=== PATIENT | male | born 1990 | race Caucasian/White ===

== ENCOUNTER 2016-08-16 05:58 | Emergency (ER) | payer OTHER ==
[~2016-08-16 05:58] MED LIST: ALPR.25 PO; BENT20TA PO; METO10TA PO
[2016-08-16 06:01] VITALS: BP 128/81; PULSE 93; RESP 20; TEMP 98.8; O2SAT 100
[2016-08-16] MEDS ORDERED: SODIUM CHLOR 0.9% 1000 ML INJ 1,000 ML IV SCH (06:13)
[2016-08-16] MEDS ORDERED: MORPHINE SULFATE 4 MG/ML INJ IV PUSH ONE (06:15)
[2016-08-16] MEDS ORDERED: ONDANSETRON HCL 4 MG/2 ML VIAL IVP ONE (06:15)
[2016-08-16] MEDS ORDERED: SODIUM CHLORIDE 0.9% FLUSH 10 ML FLUSH IV FLUSH PRN (06:15)
--- NOTE | 2016-08-16 06:22 | PD ---
HPI . Vomiting Chief Complaint: GI Complaint Time Seen by Provider: 06:13 Travel History International Travel<30 days: No Contact w/Intl Traveler<30days: No Traveled to known affect area: No History of Present Illness HPI Patient presents complaining with vomiting which started acutely at about 11 PM. He states that his vomiting has been associated with several episodes of syncope. He has now developed crampy abdominal pain. He rates the pain as 9/ 10. He denies diarrhea. He denies fever. He denies urinary tract symptoms. He does complain with bilateral flank pain. He states that he has taken Reglan with no relief. He has not noted exacerbating factors. 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, "Pneumo-mediastinum") Immunizations Current: Yes Migraines: No Seizures: No PNEUMOCCOCAL Vaccine (Year): 2 Past Surgical History Surgical History: No Previous Surgery Other Surgery: No Social History Alcohol Use: Yes (occ) Tobacco Use: No Substance Use: No Allergies-Medications (Allergen,Severity, Reaction): Coded Allergies: No Known Allergies (Verified , 05/24/15) Reported Meds & Prescriptions Reported Meds & Active Scripts Active No Active Prescriptions or Reported Medications Review of Systems Except as stated in HPI: all other systems reviewed are Neg General / Constitutional: No: Fever, Chills Cardiovascular: No: Chest Pain or Discomfort Respiratory: No: Shortness of Breath Gastrointestinal: Positive: Nausea, Vomiting, Abdominal Pain, No: Diarrhea Genitourinary: No: Urgency, Frequency, Dysuria Neurologic: Positive: Syncope Physical Exam Narrative GENERAL: Healthy-appearing young man in no acute distress. SKIN: Warm and dry. HEAD: Atraumatic. Normocephalic. EYES: Pupils equal and round. Extraocular movements are intact. ENT: No nasal bleeding or discharge. Mucous membranes pink and moist. NECK: Trachea midline. Neck is supple. CARDIOVASCULAR: Regular rate and rhythm. Heart sounds are normal. RESPIRATORY: No accessory muscle use. Lungs are clear with full air movement throughout. GASTROINTESTINAL: Abdomen soft. Bowel sounds positive. Diffuse upper abdominal tenderness. No guarding or rebound. No point tenderness. Nondistended. MUSCULOSKELETAL: No obvious deformities. No edema. NEUROLOGICAL: Awake and alert. No obvious cranial nerve deficits. Motor grossly within normal limits. Normal speech. PSYCHIATRIC: Appropriate mood and affect; insight and judgment normal. Data Data Last Documented VS Vital Signs Date Time Temp Pulse Resp B/P Pulse Ox O2 Delivery O2 Flow Rate FiO2 08/16/16 06:01 98.8 93 20 128/81 100 Room Air Orders Complete Blood Count With Diff (08/16/16 06:13) Comprehensive Metabolic Panel (08/16/16 06:13) Lipase (08/16/16 06:13) Urinalysis - C+S If Indicated (08/16/16 06:13) Ct Abd/Pel W Iv Contrast(Rout) (08/16/16 06:13) Iv Access Insert/Monitor (08/16/16 06:13) Morphine Inj (Morphine Inj) (08/16/16 06:15) Ondansetron Inj (Zofran Inj) (08/16/16 06:15) Sodium Chlor 0.9% 1000 Ml Inj (Ns 1000 M (08/16/16 06:13) Sodium Chloride 0.9% Flush (Ns Flush) (08/16/16 06:15) Electrocardiogram (08/16/16 06:13) Iohexol 350 Inj (Omnipaque 350 Inj) (08/16/16 06:48) Labs Laboratory Tests Test 08/16/16 06:16 White Blood Count 10.8 TH/MM3 Red Blood Count 5.06 MIL/MM3 Hemoglobin 16.3 GM/DL Hematocrit 46.4 % Mean Corpuscular Volume 91.8 FL Mean Corpuscular Hemoglobin 32.3 PG Mean Corpuscular Hemoglobin 35.1 % Concent Red Cell Distribution Width 13.2 % Platelet Count 211 TH/MM3 Mean Platelet Volume 9.3 FL Neutrophils (%) (Auto) 92.5 % Lymphocytes (%) (Auto) 2.5 % Monocytes (%) (Auto) 4.6 % Eosinophils (%) (Auto) 0.1 % Basophils (%) (Auto) 0.3 % Neutrophils # (Auto) 10.0 TH/MM3 Lymphocytes # (Auto) 0.3 TH/MM3 Monocytes # (Auto) 0.5 TH/MM3 Eosinophils # (Auto) 0.0 TH/MM3 Basophils # (Auto) 0.0 TH/MM3 CBC Comment DIFF FINAL Differential Comment MDM Medical Decision Making Medical Screen Exam Complete: Yes Emergency Medical Condition: Yes Interpretation(s) EKG shows a normal sinus rhythm with an intraventricular conduction delay and an elevated J-point in leads V1 through V3. This is unchanged from previous. Differential Diagnosis Differential diagnosis of abdominal pain includes but is not limited to gastritis, pancreatitis, hepatitis, gastroenteritis, gallbladder disease, constipation, urinary retention, UTI, peptic ulcer disease, diverticulitis or appendicitis Narrative Course Patient presents complaining with vomiting associated with syncope and upper abdominal cramping. CBC Diagram 08/16/16 06:16 CT abd/pelvis>>The liver and spleen are free of focal defects. The gallbladder and pancreas demonstrate no abnormality. The adrenal glands are normal. The kidneys demonstrate no evidence of solid renal mass or hydronephrosis. No free fluid or abdominal masses are identified. No para-aortic adenopathy is seen. Examination of the pelvis demonstrates no evidence of free fluid or pelvic mass. No abnormally enlarged inguinal or retroperitoneal lymph nodes are present. The bladder is unremarkable. There is diverticulosis without evidence of diverticulitis. Diagnosis Primary Impression: Vomiting Qualified Code: R11.2 - Non-intractable vomiting with nausea, unspecified vomiting type Additional Impressions: Abdominal pain Qualified Code: R10.10 - Pain of upper abdomen Syncope Qualified Code: R55 - Vasovagal syncope Med/Other Pt SpecificInfo: Prescription(s) given Scripts Dicyclomine (Bentyl)10 Mg Cap10 Mg PO QID #15 CAP Ref 0 Prov:Teri Braga MD 08/16/16 Ondansetron Odt (Zofran Odt)4 Mg Tab4 Mg SL Q6HR PRN (Nausea/Vomiting) #30 TAB Ref 0 Prov:Teri Braga MD 08/16/16 Disposition: 01 DISCHARGE HOME Condition: Stable Teri Braga MD Aug 16, 2016 06:22
[2016-08-16 06:27] LABS: BASOPHIL % 0.3 % (0.0-2.0); EOSINOPHIL % 0.1 % (0.0-4.0); HEMATOCRIT 46.4 % (39.0-51.0); HEMO FLAGS DIFF FINAL; LYMPH % 2.5 % (9.0-44.0); LYMPHOCYTE # 0.3 TH/MM3 (1.0-4.8); MEAN CELL VOLUME 91.8 FL (80.0-100.0); MEAN CORPUSCULAR HEMOGLOBIN 32.3 PG (27.0-34.0); MEAN CORPUSCULAR HGB CONC 35.1 % (32.0-36.0); MONO % 4.6 % (0.0-8.0); NEUT % 92.5 % (16.0-70.0); PLATELET COUNT 211 TH/MM3 (150-450); RED BLOOD COUNT 5.06 MIL/MM3 (4.50-5.90); RED CELL DISTRIBUTION WIDTH 13.2 % (11.6-17.2); WHITE BLOOD COUNT 10.8 TH/MM3 (4.0-11.0)
[2016-08-16] MEDS ORDERED: IOHEXOL 350 MG/ML 10 ML VIAL (for RAD DIAG) IV ONE (06:48)
--- NOTE | 2016-08-16 06:54 | RADRPT ---
EXAM DATE/TIME: 08/16/2016 06:35 [facility] COMPARISON: No previous studies available for comparison. INDICATIONS : Diffuse abdominal pain. IV CONTRAST: 100 cc Omnipaque 350 (iohexol) IV ORAL CONTRAST: No oral contrast ingested. RADIATION DOSE: 10.23 CTDIvol (mGy) MEDICAL HISTORY : None SURGICAL HISTORY : None. ENCOUNTER: Initial ACUITY: 1 day PAIN SCALE: 5/10 LOCATION: diffuse abdomen TECHNIQUE: Volumetric scanning of the abdomen and pelvis was performed. Using automated exposure control and ad justment of the mA and/or kV according to patient size, radiation dose was kept as low as reasonably achievable to obtain optimal diagnostic quality images. FINDINGS: The liver and spleen are free of focal defects. The gallbladder and pancreas demonstrate no abnormali ty. The adrenal glands are normal. The kidneys demonstrate no evidence of solid renal mass or hydrone phrosis. No free fluid or abdominal masses are identified. No para-aortic adenopathy is seen. Examination of the pelvis demonstrates no evidence of free fluid or pelvic mass. No abnormally enlarg ed inguinal or retroperitoneal lymph nodes are present. The bladder is unremarkable. There is diverti culosis without evidence of diverticulitis. CONCLUSION: 1. No evidence of acute abdominal or pelvic process. No masses are identified. Diverticulosis without evidence of diverticulitis. Saurav Hopper MD on August 16, 2016 at 6:51 Board Certified Radiologist. This report was verified electronically.
[2016-08-16] MEDS ORDERED: ZOFR4TAB3 SL (07:03)
[2016-08-16] MEDS ORDERED: DICY10 PO (07:03)
[2016-08-16 07:07] VITALS: BP 135/61; PULSE 82; RESP 18; O2SAT 100
[2016-08-16 07:12] LABS: ANION GAP 8 MEQ/L (5-15); AST (GOT) 24 U/L (15-37); BICARBONATE 27.5 MEQ/L (21.0-32.0); BLOOD UREA NITROGEN 18 MG/DL (7-18); CHLORIDE 101 MEQ/L (98-107); GLOMERULAR FILTRATION RATE 89 ML/MIN (>89); SODIUM (NA) 136 MEQ/L (136-145)
[2016-08-16 07:13] LABS: ALT (GPT) 37 U/L (12-78)
[2016-08-16 07:15] LABS: ALKALINE PHOSPHATASE 94 U/L (45-117); TOTAL BILIRUBIN ADULT 1.1 MG/DL (0.2-1.0)
[2016-08-16] MEDS ORDERED: ONDANSETRON ODT 4 MG TAB PO ONE (07:45)
[2016-08-16] MEDS ORDERED: PROMETHAZINE HCL 25 MG TAB PO ONE (07:45)
--- NOTE | 2016-08-16 12:40 | EKG ---
Date Performed: 08/16/2016 Time Performed: 06:25:00 PTAGE: 26 years EKG: Sinus rhythm LEFT ATRIAL ENLARGEMENT POSSIBLE RIGHT VENTRICULAR CONDUCTION DELAY ABNORMAL ECG Persistent ST eleva tion, probably early repolarization Largely unchanged from prior tracing NO PREVIOUS TRACING DOCTOR: Marco A Castillo Interpretating Date/Time 08/16/2016 12:39:40
== END 2016-08-16 07:35 | disposition home or self-care (01) ==
LOC: NEPE 05:58
DX: R11.2 Nausea with vomiting, unspecified (principal); R10.10 Upper abdominal pain, unspecified; R55 Syncope and collapse; R94.31 Abnormal electrocardiogram [ECG] [EKG]
CPT/HCPCS: 74177; 80053; 83690; 85025; 93005; 96361; 96374; 96375; 99285; J2270; J2405; J7030; Q9967; Q0169

== ENCOUNTER 2017-06-19 16:09 | Emergency (ER) | payer OTHER ==
[~2017-06-19 16:09] MED LIST changes: -ALPR.25 PO; -BENT20TA PO; +DICY10 PO; -METO10TA PO; +ZOFR4TAB3 SL
[2017-06-19 16:15] VITALS: BP 139/61; PULSE 80; RESP 14; TEMP 98.8; O2SAT 100
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
[2017-06-19] MEDS ORDERED: DICL75TA PO (17:32)
[2017-06-19] MEDS ORDERED: HYDR-3516 PO (17:32)
[2017-06-19] MEDS ORDERED: IBUPROFEN 800 MG TAB PO ONE (17:45)
[2017-06-19] MEDS ORDERED: ACETAMINOPHEN/HYDROcodone 325 MG/10 MG TAB PO ONE (17:45)
[2017-06-19] MEDS ORDERED: ZOFR4TAB3 SL (18:04)
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
[2017-06-19 18:42] VITALS: BP 122/53; PULSE 75; RESP 16; O2SAT 98
== END 2017-06-19 19:19 | disposition home or self-care (01) ==
LOC: NEPE 16:09
DX: S82.54XA Nondisplaced fracture of medial malleolus of right tibia, initial encounter for closed fracture (principal); S83.92XA Sprain of unspecified site of left knee, initial encounter; V86.96XA Unspecified occupant of dirt bike or motor/cross bike injured in nontraffic accident, initial encounter
CPT/HCPCS: 73564; 73610; 73630; 99283; E0113; L1830; L2114